=== PATIENT | female | born 2000 | race Two or more races ===

== ENCOUNTER 2023-09-17 14:45 | Emergency (ER) | payer BC ==
[~2023-09-17] VITALS: Ht 154.9 cm; Wt 49.9 kg
[2023-09-17] MEDS ORDERED: KETOROLAC TROMETHAMINE 30 MG VIAL IV ONE (18:00)
[2023-09-17] MEDS ORDERED: VANCOMYCIN HCL 1,000 MG VIAL IV ONE (18:00)
[2023-09-17 18:17] LABS: HEMATOCRIT 36.7 % (36.0-45.00); HEMOGLOBIN 12.5 g/dL (12.0-15.00); MEAN CELL VOLUME 82.3 fL (80.00-100.00); PLATELET COUNT 282 K/uL (150-450); RED BLOOD COUNT 4.46 M/uL (4.00-6.00); RED CELL DISTRIBUTION WIDTH 13.6 % (11.5-14.5)
[2023-09-17 18:46] LABS: ALBUMIN 3.4 gm/dL (3.4-5.0); BILIRUBIN TOTAL 0.23 mg/dL (0.3-1.2); CREATININE SERUM 0.63 mg/dL (0.55-1.02); GFR 116.1; GLOBULINA 4.7 G/DL (2.4-3.5); POTASSIUM 3.84 mEq/L (3.5-5.1); TOTAL PROTEIN 8.1 gm/dL (6.4-8.2)
[2023-09-17] MEDS ORDERED: DIPHENHYDRAMINE HCL 50 MG/ML VIAL 1ML IM ONE (19:00)
[2023-09-17] MEDS ORDERED: CLINDAMYCI75 MG/5 M1 PO (20:54)
[2023-09-17] MEDS ORDERED: CLEOCIN HCL300 MG PO (20:58)
== END 2023-09-17 21:05 | disposition home or self-care (01) ==
LOC: ER 14:46
PROVIDERS: General Practice
DX: L02.91 Cutaneous abscess, unspecified (principal); I10 Essential (primary) hypertension; Z88.2 Allergy status to sulfonamides